=== PATIENT | female | born 1995 | race Caucasian/White ===

== ENCOUNTER 2025-05-09 13:35 | Inpatient (IN) ==
--- NOTE | 2025-05-09 14:05 | Emergency Department Note ---
Impression & Plan Suicidal ideation ED Provider Note NAME: RONNIE GILBERT AGE: 29 SEX: F : 1995 ARRIVES VIA: Walk-In INFORMANT: Patient ED PROVIDER(S): Clifford CHIEF COMPLAINT: Mental health evaluation HISTORY OF PRESENT ILLNESS: The patient is a 29-year-old female who has bipolar disease. She states that a week and a half ago, she received a steroid injection in her back and, this triggered a manic episode. Now she is on a low. She missed her medications a few days as well. The patient was having suicidal thoughts. She planned to jump off of a parking garage and now, has a plan to take her pills in excess. The patient went to her therapist today, she explained her current feelings and, the therapist sent the patient here to the ER for a mental health screen. The patient has not had cough cold or congestion. She states her only real medical issue is her lower back. She has chronic pain. Of note, the patient has not had a menstrual cycle in 3 months although, this is typical when she is stressed. PMHx/PSHx/Social Hx: See Below PHYSICAL EXAM: GENERAL: Patient is in no acute distress. HEENT: No acute trauma, normocephalic atraumatic, mucous membranes moist, no nasal congestion. NECK: No stridor, no adenopathy, no meningismus, trachea is midline. LUNGS: Clear to auscultation bilaterally, no wheeze, no rhonchi, breath sounds equal. HEART: Without murmurs gallops or rubs, regular rate and rhythm. ABDOMEN: Soft, nontender, no peritonitis. EXTREMITIES: No cyanosis, full range of motion of all the joints without pain or difficulty. NEUROLOGIC: Oriented x 3, no acute motor or sensory deficits, no focal weakness. SKIN: No jaundice, no diaphoresis. Psychiatric: Tearful, admits to suicidal ideation with a plan. Voluntary. DIFFERENTIAL DIAGNOSIS: Psychosis, medication noncompliance, bipolar flare, suicidality, among others. EMERGENCY DEPARTMENT PROCEDURES: MEDICAL DECISION MAKING: There is a mild leukocytosis, looking back at previous testing, this appears a more of a chronic issue. There is a normal hemoglobin. Platelet count slightly high at 413. No bandemia. No electrolyte abnormality or significant elevation to the liver enzymes. No renal failure. testing was negative. Patient appeared to be in euthyroid state. Aspirin and Tylenol levels were undetectable. Alcohol level was undetectable. Urine tox was positive for marijuana. Urinalysis did not show findings of infection. COVID test was negative. On exam, the patient was cooperative. She was voluntary. The patient was felt medically clear. The patient was seen by psychiatry case management. The patient was seen by our psychiatric services, 3 S. She has been accepted to their floor as a voluntary psychiatric admission. He appropriate paperwork was completed and signed. Prior/Outside records/notes reviewed: None Imaging/x-ray results per my interpretation: Chronic Medical/Social conditions affecting care: History of bipolar disease Care/Management discussed with: Psychiatry case management. Level of care consideration(s): After review of the information above and other included data: --I believe the patient requires escalation of care to admission DISPOSITION: Admission voluntarily to our psychiatric services here at [facility], 3 S. Past Med/Surg History Problem List Suicidal ideation (Acute) Migraine Paresthesia Medical History Bipolar disorder Social History Smoking Status: Former smoker Preferred Language: Guyanese Communication Ability: Effective Marketing Lead Required: No Beliefs That Will Affect Care: None Feels Safe at Home: Yes Gender Identity: Female Assistive Devices: Glasses Allergies Allergies Allergy/AdvReac Type Severity Reaction Status Date / Time grass pollen Allergy Itching Verified 06/17/24 09:58 cats Allergy Congested Uncoded 06/17/24 09:58 dogs Allergy Congested Uncoded 06/17/24 09:58 dust mite Allergy Itching Uncoded 06/17/24 09:58 Home Meds Home Medications Medication Instructions Recorded Confirmed albuterol sulfate 90 mcg/actuation 2 puff inhalation Q6H PRN SOB 06/17/24 05/09/25 aerosol inhaler fluoxetine 20 mg capsule 60 mg PO BID 05/09/25 05/09/25 lamotrigine 150 mg tablet 150 mg PO DAILY 05/09/25 05/09/25 lamotrigine 25 mg tablet 50 mg PO DAILY 05/09/25 05/09/25 norethindrone 1 mg-ethinyl 1 tab PO DAILY 05/09/25 05/09/25 estradiol 20 mcg (21)-iron 75 mg (7) tablet (Shauna Fe 08/29 (28)) omeprazole 20 mg capsule,delayed 20 mg PO BID 05/09/25 05/09/25 release Previous Rx's Medication Instructions Recorded epinephrine 0.3 mg/0.3 mL 0.3 mg (0.3 mL) IM ONCE PRN 05/27/24 injection, auto-injector (EpiPen) anaphylaxis #2 ea cetirizine 10 mg tablet 10 mg PO DAILY #30 tabs 06/17/24 Breo Ellipta 100 mcg-25 mcg/dose 1 inh inhalation DAILY #28 ea 10/14/24 powder for inhalation (fluticasone furoate-vilanterol) Results & Data (ED) Vital Signs Vital Signs - 24 hr 05/09/25 13:40 Temperature 36.4 C L Temperature Source Temporal Artery Scan Pulse Rate 98 H Respiratory Rate 17 Respiratory Effort / Characteristics Non-Labored Spontaneous Respiratory Depth Normal Respiratory Pattern Regular Blood Pressure 139/89 Blood Pressure Mean 105 Pulse Oximetry 96 Oxygen Delivery Method Room Air Sepsis Recent Fever Within 48 Hours No Sepsis New/Unexplained Change in Mental Status N/A Sepsis Action Taken by Nursing No Action Required Home Medications Current Medication List: was personally reviewed by me Laboratory Data Attestation: I reviewed the patient's lab results. 05/09/25 14:18 05/09/25 14:18 Lab Results 05/09/25 Range/Units 14:18 WBC 13.68 H (4.8-10.8) K/ul RBC 4.74 (4.20-5.40) M/uL Hgb 12.9 (12.0-16.0) g/dl Hct 39.3 (37.0-47.0) % MCV 82.9 (80.0-100.0) fL MCH 27.2 (25.0-34.0) pg MCHC 32.8 (32.0-36.0) g/dL RDW Std Deviation 40.6 (36.4-46.3) fL RDW Coeff of Neil 13.6 (11.5-14.5) % Plt Count 413 H (130-400) K/uL MPV 9.8 (9.4-12.4) fL Immature Gran % (Auto) 0.4 % Neut % (Auto) 67.3 % Lymph % (Auto) 26.2 % Mathews % (Auto) 4.2 % Eos % (Auto) 1.7 % Baso % (Auto) 0.2 % Neut # (Auto) 9.20 H (1.40-6.50) K/uL Lymph # (Auto) 3.59 H (1.20-3.40) K/uL Mathews # (Auto) 0.58 (0.11-0.59) K/uL Eos # (Auto) 0.23 (0.00-0.50) K/uL Baso # (Auto) 0.03 (0.00-0.20) K/uL Immature Gran # (Auto) 0.05 (0.01-0.20) K/uL Sodium 139 (136-145) mmol/L Potassium 4.1 (3.5-5.1) mmol/L Chloride 105 (98-107) mmol/L Carbon Dioxide 24 (21-32) mmol/L Anion Gap 10 (3-11) BUN 12 (6-23) mg/dl Creatinine 0.83 (0.6-1.2) mg/dl Est Cr Clr Drug Dosing 155.0 ml/min eGFR 98.42 BUN/Creatinine Ratio 14.5 (10-20) Glucose 126 H (70-99(Fasting)) mg/dl Calcium 9.3 (8.6-10.3) mg/dl Total Bilirubin 0.4 (0.2-1.0) mg/dl AST 14 (13-39) U/L ALT 11 (7-52) U/L Alkaline Phosphatase 133 H (34-104) U/L Total Protein 7.2 (6.0-8.3) gm/dl Albumin 3.9 (3.4-5.0) gm/dl Globulin 3.3 (2.5-4.0) gm/dl Albumin/Globulin Ratio 1.2 (0.9-2) TSH 3.067 (0.300-4.500) uIu/ml HCG, Qual Negative (Negative) Salicylates < 3.0 L (3.0-30) mg/dl Acetaminophen < 3 L (10-30) ug/ml Ethyl Alcohol mg/dL < 10.0 (<10.0) mg/dl SARS-CoV-2, RNA, NAAT NEGATIVE (NEGATIVE) Administered Medications Cetirizine HCl (Cetirizine Hcl 10 Mg Tablet) 10 mg PO 2100 CELESTE Stop: 06/08/25 20:59 Last Admin: 05/09/25 22:20 Dose: 10 mg Documented By: EL Fluoxetine HCl (Fluoxetine Hcl 20 Mg Cap) 40 mg PO HS CELESTE Stop: 06/08/25 21:59 Last Admin: 05/09/25 22:20 Dose: 40 mg Documented By: EL Lamotrigine (Lamotrigine 25 Mg Tab) 50 mg PO HS CELESTE; Protocol Stop: 06/08/25 21:59 Last Admin: 05/09/25 22:20 Dose: 50 mg Documented By: EL Discontinued Medications Acetaminophen (Acetaminophen 500 Mg Tab) 1,000 mg PO NOW STA Stop: 05/09/25 15:57 Last Admin: 05/09/25 16:25 Dose: 1,000 mg Documented By: YANNA Hydroxyzine HCl (Hydroxyzine Hcl 25 Mg Tab) 25 mg PO NOW STA Stop: 05/09/25 14:13 Last Admin: 05/09/25 14:29 Dose: 25 mg Documented By: GARY Lorazepam (Lorazepam 1 Mg Tab) 1 mg SL NOW STA Stop: 05/09/25 14:13 Last Admin: 05/09/25 14:29 Dose: 1 mg Documented By: GARY Discharge Plan Visit Data Chief Complaint: Mental Health Evaluation Stated Complaint: SUICIDAL IDEATION ED Provider: Ozzy Horton Discharge Problem: Suicidal ideation Patient Disposition: Admitted As Inpatient Condition: Good Discharge Instructions Interventions: ED Discharge Assessment Last Done: 05/09/25 17:34
[2025-05-09] MEDS: LORazepam 1 MG TAB SL STA (14:29)
[2025-05-09 14:49] LABS: Hematocrit (blood only) 39.3 % (37.0-47.0); Hemoglobin 12.9 g/dl (12.0-16.0); Immature Granulocytes # (auto) 0.05 K/uL (0.01-0.20); Immature Granulocytes % (auto) 0.4 %; Mean Corpuscular Hemoglobin 27.2 pg (25.0-34.0); Mean Corpuscular Volume 82.9 fL (80.0-100.0); Platelet Count 413 K/uL (130-400); RDW Standard Deviation 40.6 fL (36.4-46.3); Red Blood Count 4.74 M/uL (4.20-5.40); White Blood Count 13.68 K/ul (4.8-10.8)
[2025-05-09 15:09] LABS: Alanine Aminotransferase 11.0 U/L (7-52); Albumin Globulin Ratio 1.2 (0.9-2); Albumin Level 3.9 gm/dl (3.4-5.0); Alkaline Phosphatase 133.0 U/L (34-104); Anion Gap 10.0 (3-11); Bilirubin,Total 0.4 mg/dl (0.2-1.0); Blood Urea Nitrogen 12.0 mg/dl (6-23); Calcium 9.3 mg/dl (8.6-10.3); Carbon Dioxide 24.0 mmol/L (21-32); Chloride 105.0 mmol/L (98-107); Creatinine Clr Calc Pharmacy 155.0 ml/min; Globulin 3.3 gm/dl (2.5-4.0); Glucose 126.0 mg/dl (70-99(Fasting)); Potassium 4.1 mmol/L (3.5-5.1); Sodium 139.0 mmol/L (136-145); Total Protein 7.2 gm/dl (6.0-8.3)
[2025-05-09 15:17] LABS: Acetaminophen < 3 ug/ml (10-30); Salicylate < 3.0 mg/dl (3.0-30)
[2025-05-09 15:20] LABS: Pregnancy Test, Serum Negative (Negative)
[2025-05-09 15:21] LABS: Thyroid Stimulating Hormone 3.067 uIu/ml (0.300-4.500)
[2025-05-09 15:43] LABS: Appearance Urine Clear (Clear); Bacteria Urine Automated 3+ (None Seen); Cast Urine Automated 0-2 /lpf (0-2); Glucose Urine UA Negative (Negative); WBC Urine Automated 0-5 /hpf (0-5)
[2025-05-09 16:03] LABS: Amphetamines+Metham, Urine Neg (Neg); MDMA (Ecstacy), Urine Neg (Neg); Marijuana, Urine Pos (Neg)
[2025-05-09] MEDS: ACETAMINOPHEN 500 MG TAB PO STA (16:25)
[2025-05-09] MEDS ORDERED: SODIUM CHLORIDE 0.65% NA SOLN 45 ML (OCEAN) PRN (18:29)
[2025-05-09] MEDS ORDERED: ALUMINUM/MAGNESIUM SUSP 30 ML UDC PO PRN (18:29)
[2025-05-09] MEDS ORDERED: BISMUTH SUBSALICYLATE 262 MG CHEW PO PRN (18:29)
[2025-05-09] MEDS ORDERED: MAGNESIUM HYDROXIDE SUSP 30 ML UDC PO PRN (18:29)
[2025-05-09] MEDS: lamoTRIgine 25 MG TAB PO SCH (22:20)
[2025-05-09] MEDS: CETIRIZINE HCL 10 MG TABLET PO SCH (22:20)
--- NOTE | 2025-05-10 09:20 | History & Physical ---
Date of Service May 10, 2025 Impression / Recommendations Impression RONNIE GILBERT is a 29-year-old woman (prefers she/they pronouns) who currently lives in [place] with her boyfriend, has a history of bipolar disorder vs borderline personality disorder and PTSD, and was admitted on 05/09/25 17:34 on a 201 voluntary commitment for worsening depression and SI and feeling unable to remain safe. Diagnostically consistent with bipolar affective disorder current depressive episode as well as generalized anxiety disorder and chronic back pain. Discussed medication treatment options in detail. Discussed risks, benefits and alternatives. Patient would like to start and consented to [place] for mood stabilization while lamictal is slowly re-titrated, continuation of lamictal, increase of fluoxetine, initiation of clonidine for off-label use for anxiety and lidocaine patch for back pain. Reviewed side effects including but not limited to: GI, [place], with fluoxetine; low BP/sycnope with clonidine; SJS/potential for fatal rash/importance of adherence with lamictal (and reviewed that increasing at a slightly faster pace than typically recommended but she is comfortable with being at 50mg instead of 25mg); and TSH, Cr, electrolytes, LFTs, CBC with platelets were reviewed, educated on risks of dehydration, renal, thyroid, cardiac, drug interactions (NSAIDs, ACEIs, angiotensin receptor antagonists, risks). Overall I spent a total of 75 minutes for this admission including review of chart records, review of labwork, direct evaluation of the patient, counseling the patient, ordering medication, risk assessment, discussion with the psychiatric liason RN and documentation in the electronic health record. (1) Depression with suicidal ideation: (2) Bipolar I disorder with depression, severe: (3) Generalized anxiety disorder with panic attacks: (4) Back pain: Plan 05/10/2025: The patient was admitted to the [facility] ([facility]) on q15 min checks (behavioral with suicide precautions) for safety. The patient will participate in group, recreational, and milieu therapies and will be offered additional individual and family sessions as clinically appropriate. -Start [place] SR 300mg HS -Start clonidine 0.1mg HS -Start lidocaine patch for back pain -Increase fluoxetine to 60mg HS -melatonin 1.5mg HS -Continue lamictal 50mg HS -Provided with symptom questionnaires: Soledad, MDQ, PHQ-9, JYOTSNA-7, Y-BOCS Inventory Assets Strengths: supportive relationships, willing to get treatment Needs: safety and stabilization, medication adjustment, additional coping skills, increased outpatient services Suicide Risk Level Suicide Risk Level: High-Moderate (q15 min suicide checks) (bipolar depression with SI but feels safe in the hospital and feels able to ask for support) Risk Factors Assessment Male: No : Yes Do You Have Access To A Gun?: No Health Problems: Yes Mental Health Diagnoses: Yes Substance Use Disorders: No Previous Attempt: No Family History of Suicide: No Previous Psychiatric Hospitalization: No Hopelessness: Yes Protective Factors Assessment Employed: Yes Stable Relationships: Yes Supportive Family: Yes (mother) Good Rapport with Provider: Yes Psychiatric History Identifying Data RONNIE GILBERT is a 29-year-old woman (prefers she/they pronouns) who currently lives in [place] with her boyfriend, has a history of bipolar disorder vs borderline personality disorder and PTSD, and was admitted on 05/09/25 17:34 on a 201 voluntary commitment for worsening depression and SI and feeling unable to remain safe. Chief Complaint "I've been really depressed". History of Present Illness Ronnie presents for psychiatric admission due to worsening depression and suicidal ideation that began approximately a week and a half ago in the context of a recent manic episode following steroid injection and financial concerns. 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 Additionally she has been inconsistent with her psychiatric medications due to her depression reporting she was so depressed she could not go to the pharmacy to pick them up and "was not asking for help". She missed her Lamictal dose for 3 days after running out which led her outpatient nurse practitioner to recommend reducing the dose from 150 mg to 50 mg. She is supposed to increase her Prozac from 40 mg to 60 mg but never picked up the new prescription. She reports that her current depressive episode began a week and a half ago describing profound fatigue and hypersomnia. She has been unable to complete schoolwork which has increased her guilt. She has been isolating socially despite being "very extroverted" and normally enjoying "being around people and talking to people" but now states "I do not want to see anyone". She reports symptoms of fatigue, difficulty attending to daily tasks, hasn't been able to concentrate or get any school work done, self-guilt, tearful, hopelessness, some anhedonia, isolating, decreased appetite, and increased sleep. She describes experiencing suicidal ideation that began a week and a half ago with thoughts that are persistent and intrusive. She has been thinking "I could take all my pills right now and it just keeps popping into my head". She also describes a specific incident last week where she thought she would jump off the parking garage and walked towards the ledge which she notes was "pretty extreme for me" but was diet deterred by concerns about social consequences if she survived after she saw cameras on the parking deck. She has been also been having thoughts of self-harm through cutting which she has not engaged in for approximately 5 years. Prior to this depressive episode earlier Ronnie experienced what appears to be a manic episode following a steroid injection she reports sleeping only "5 hours of sleep over 3 to 5 days" during which she was "in a great mood" and "so productive". During this period she describes being "so energetic like I could not stop talking" and would try to wake her partner at 4 AM to do things. She engaged in excessive spending which she identifies as a pattern when she feels elevated. The manic episode ended around April 30 when she noted her mood "started to crash" leading into the current depressive episode. At times she feels the need to repeat things which she describes as "commercial ads and sounds bites and stuff on repeat" noting that if she tries to stop "I feel like it is trying to like crawl out of me I have to say it". She also endorses symptoms of anxiety including generalized worries, stomach issues, easily overwhelmed and panic attacks (few times per year). Identifies target symptoms of: self-hate and racing negative thoughts and "feeling like I can't do anything". She is currently prescribed psychiatric medications of: fluoxetine (40mg HS was supposed to increase to 60mg but hasn't picked up higher dose), lamictal (had been on 150mg after chance but then with depression she didn't apple picker her script and missed 3 days), melatonin 1mg gummy nightly. Xanax prn but only takes for flights (just a few times per year). History of possible episodes of chance most recently two weeks ago after getting a steroid injection. Then went about 5 days on only 5 hours of sleep over that time with elevated mood, very productive, spent a lot of money, she didn't have any other reckless behaviors nor grandiosity nor hyper-pentecostal, people were noticing she couldn't stop talking. Psychiatric ROS notable for no current nor history of symptoms of psychosis. History of purging 5-6 years ago, 2 weeks ago induced purging three times but she felt nausea from increased anxiety. History of self-harm via cutting, last about 5 years ago. Possible some OCD symptoms of having recurrent thoughts and needing to vocalize this but she doesn't feel this is taking up excessive amounts of time. Past Psychiatric History Current Psychiatric Diagnosis: Bipolar Disorder, PTSD Outpatient Services: -Deborah Crane NP for psych medications at [facility] -therapy with Valery Peng at [facility] weekly Previous Psych Admissions: none Do You Have Access To A Gun?: No History of Previous Suicide Attempt: No Past Medication Trials: Geomichela (rod) Buspar Wellbutrin Lexapro Vraylar Allergies Allergy/AdvReac Type Severity Reaction Status Date / Time grass pollen Allergy Itching Verified 06/17/24 09:58 cats Allergy Congested Uncoded 06/17/24 09:58 dogs Allergy Congested Uncoded 06/17/24 09:58 dust mite Allergy Itching Uncoded 06/17/24 09:58 Home Medications Medication Instructions Recorded Confirmed Type epinephrine 0.3 mg/0.3 mL 0.3 mg (0.3 mL) IM ONCE PRN 05/27/24 05/09/25 Rx injection, auto-injector (EpiPen) anaphylaxis #2 ea albuterol sulfate 90 mcg/actuation 2 puff inhalation Q6H PRN SOB 06/17/24 05/09/25 History aerosol inhaler cetirizine 10 mg tablet 10 mg PO DAILY #30 tabs 06/17/24 05/09/25 Rx Breo Ellipta 100 mcg-25 mcg/dose 1 inh inhalation DAILY #28 ea 10/14/24 05/09/25 Rx powder for inhalation (fluticasone furoate-vilanterol) fluoxetine 20 mg capsule 60 mg PO BID 05/09/25 05/09/25 History lamotrigine 150 mg tablet 150 mg PO DAILY 05/09/25 05/09/25 History lamotrigine 25 mg tablet 50 mg PO DAILY 05/09/25 05/09/25 History norethindrone 1 mg-ethinyl 1 tab PO DAILY 05/09/25 05/09/25 History estradiol 20 mcg (21)-iron 75 mg (7) tablet (Shauna Fe 08/29 (28)) omeprazole 20 mg capsule,delayed 20 mg PO BID 05/09/25 05/09/25 History release Family History Family History of: Alcoholism/Drug Abuse (mother and father) and Bipolar (mother) Alcohol History Hx of Alcohol Use Over the Past 12 Months: Yes AUDIT Total Score: 2 Social use, problematic around age 22 with excessive use but no longer struggles with use Smoking Use Have You Smoked or Used Tobacco Products in the Last 30 Days: No tobacco type: cigarettes Smoking Status: Former smoker Substance History Hx of Prescription Med Misuse Over the Past 12 Months: No Hx of Over the Counter Med Misuse Over the Past 12 Months: No Hx of Inhalent Misuse Over the Past 12 Months: No Hx of Organic Substance Use Over the Past 12 Months: Yes (THC Gummies) Hx of Illegal Substances/Street Drug Use Over Past 12 Months: No Problems as a Result of Past Substance Use: None Identified THC gummies daily, likes that they help with quieting thoughts and calm her down and improves her mood Personal History Living Arrangements: Apartment Living Arrangements Comments: Live with my partner and 4 cats Highest Grade Completed: 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 Other (together for 5 years) Number Of Children: 0 Beliefs That Will Affect Care: None Current Legal Problems: No Hx Legal Problems: No Hx Traumatic Life Events: Yes Patient History Medical History Bipolar disorder Social History Smoking Status: Former smoker Preferred Language: Czech Communication Ability: Effective Loom Blower Required: No Beliefs That Will Affect Care: None Feels Safe at Home: Yes Gender Identity: Female Assistive Devices: Glasses Review of Systems Review of Systems: All systems reviewed & are unremarkable except as noted in HPI & below (back pain) Physical Exam Psychiatric: Orientation: alert and oriented x 3 Apperance: appropriately dressed and appropriately groomed Eye Contact: + fair eye contact Motor Behavior: no abnormal motor movements Speech: normal rate/rhythm/volume of speech Affect: + depressed affect and + anxious affect Mood: + depressed mood and + anxious mood Thought Process: + circumstantial thought process Thought Content: reality based without delusions Suicidal Thoughts: denies suicidal plan and denies suicidal intent; + reports suicidal thoughts Homicidal Thoughts: denies homicidal thoughts Hallucinations: no auditory hallucinations and no visual hallucinations Cognition: recent memory grossly intact, remote memory grossly intact, attention grossly intact and language grossly intact Estimated Intelligence: consistent with education level Insight: + fair insight Judgment: + fair judgement Vital Signs (Past 24 Hours): Last Vital Signs Temp 36.6 C 05/10/25 06:32 Pulse 74 05/10/25 06:33 Resp 16 05/10/25 06:32 BP 133/85 05/10/25 06:33 Pulse Ox 96 05/09/25 18:37 O2 Del Method Room Air 05/09/25 18:37 Exam Statement: A physical exam was performed in the ED by Dr. Horton for the purposes of medical clearance. I accept that physical as correct and adequate for the purposes of the inpatient physical exam. Results & Data ([facility]) Laboratory Results Laboratory Results - last 24 hr 05/09/25 05/09/25 14:18 Unknown WBC 13.68 H RBC 4.74 Hgb 12.9 Hct 39.3 MCV 82.9 MCH 27.2 MCHC 32.8 RDW Std Deviation 40.6 RDW Coeff of Neil 13.6 Plt Count 413 H MPV 9.8 Immature Gran % (Auto) 0.4 Neut % (Auto) 67.3 Lymph % (Auto) 26.2 [place] % (Auto) 4.2 Eos % (Auto) 1.7 Baso % (Auto) 0.2 Neut # (Auto) 9.20 H Lymph # (Auto) 3.59 H [place] # (Auto) 0.58 Eos # (Auto) 0.23 Baso # (Auto) 0.03 Immature Gran # (Auto) 0.05 Sodium 139 Potassium 4.1 Chloride 105 Carbon Dioxide 24 Anion Gap 10 BUN 12 Creatinine 0.83 Est Cr Clr Drug Dosing 155.0 eGFR 98.42 BUN/Creatinine Ratio 14.5 Glucose 126 H Calcium 9.3 Total Bilirubin 0.4 AST 14 ALT 11 Alkaline Phosphatase 133 H Total Protein 7.2 Albumin 3.9 Globulin 3.3 Albumin/Globulin Ratio 1.2 TSH 3.067 HCG, Qual Negative Urine Color Yellow Urine Appearance Clear Urine pH 6.5 Ur Specific [place] 1.013 Urine Protein Negative Urine Glucose (UA) Negative Urine Ketones Negative Urine Blood 1+ H Urine Nitrite Negative Urine Bilirubin Negative Urine Urobilinogen Negative Ur Leukocyte Esterase Negative Urine WBC (Auto) 0-5 Urine RBC (Auto) 3-5 H U Hyaline Cast (Auto) 0-2 U Epithel Cells (Auto) 3-5 H Urine Bacteria (Auto) 3+ H Urine Comment Salicylates < 3.0 L Urine Opiates Screen Neg Ur Methadone, Qual Neg Urine Fentanyl Screen Neg Acetaminophen < 3 L Urine Barbiturates Neg Ur Phencyclidine (PCP) Neg U Amphetamin/Meth Scrn Neg MDMA (Ecstasy) Screen Neg U Benzodiazepines Scrn Neg Ur Cocaine Metabolite Neg U Marijuana (THC) Screen Pos H U Marijuana THC Carboxy Pending Drug Screen Comment Pending Ethyl Alcohol mg/dL < 10.0 SARS-CoV-2, RNA, NAAT NEGATIVE Current Inpatient Medications Current Inpatient Medications: Current Inpatient Medications Acetaminophen (Acetaminophen 325 Mg Tab) 650 mg PO Q4H PRN PRN Reason: Headache or Minor Fever Stop: 06/08/25 18:28 Al Hydrox/Mg Hydrox/Simethicone (Aluminum/Magnesium Susp 30 Ml Udc) 30 ml PO Q4H PRN PRN Reason: GI Upset Stop: 06/08/25 18:28 Bismuth Subsalicylate (Bismuth Subsalicylate 262 Mg Chew) 2 tab PO Q30M PRN PRN Reason: Loose Stool/Diarrhea Stop: 06/08/25 18:28 Cetirizine HCl (Cetirizine Hcl 10 Mg Tablet) 10 mg PO 2100 CELESTE Stop: 06/08/25 20:59 Last Admin: 05/09/25 22:20 Dose: 10 mg Fluoxetine HCl (Fluoxetine Hcl 20 Mg Cap) 40 mg PO HS CELESTE Stop: 06/08/25 21:59 Last Admin: 05/09/25 22:20 Dose: 40 mg Hydroxyzine HCl (Hydroxyzine Hcl 25 Mg Tab) 50 mg PO HSZ PRN PRN Reason: Insomnia Stop: 06/08/25 18:28 Hydroxyzine HCl (Hydroxyzine Hcl 25 Mg Tab) 25 mg PO Q4H PRN PRN Reason: Anxiety Stop: 06/08/25 18:28 Lamotrigine (Lamotrigine 25 Mg Tab) 50 mg PO HS CELESTE; Protocol Stop: 06/08/25 21:59 Last Admin: 05/09/25 22:20 Dose: 50 mg Magnesium Hydroxide (Magnesium Hydroxide Susp 30 Ml Udc) 30 ml PO DAILY PRN PRN Reason: Constipation Stop: 06/08/25 18:28 Sodium Chloride (Sodium Chloride 0.65% Na Soln 45 Ml ([place])) 1 - 2 sprays NA PRN PRN PRN Reason: Nasal Dryness/Congestion Stop: 06/08/25 18:28
[2025-05-10] MEDS ORDERED: ALBUTEROL HFA 8 GM INHALER INH PRN (10:36)
[2025-05-10] MEDS: LIDOCAINE 5% 1 PATCH TD SCH (12:23)
[2025-05-10] MEDS: INFLUENZA VACC TS2025-26(6m+)/PF (IIV3) 0.5mL Syr IM ONE (13:23)
[2025-05-10] MEDS: LITHIUM CARBONATE SLOW REL 300 MG TAB PO SCH (20:57)
[2025-05-10] MEDS: CETIRIZINE HCL 10 MG TABLET PO SCH (20:58)
[2025-05-10] MEDS: lamoTRIgine 25 MG TAB PO SCH (20:58)
[2025-05-10] MEDS: [UNRECOGNIZED DRUG - OTHER] PO SCH (20:59)
[2025-05-10] MEDS: MELATONIN 1 MG PO SCH (20:59)
[2025-05-10] MEDS: REMOVE LIDODERM PATCH SCH (21:00)
[2025-05-10] MEDS ORDERED: MELATONIN 3 MG TAB PO SCH (22:00)
[2025-05-10] MEDS: ACETAMINOPHEN 325 MG TAB PO PRN (22:01)
[2025-05-11] MEDS: ETHINYL ESTRADIOL PO SCH (08:14)
[2025-05-11] MEDS: FERROUS FUMARATE PO SCH (08:14)
[2025-05-11] MEDS: NORETHINDRONE PO SCH (08:14)
--- NOTE | 2025-05-11 09:15 | Psychiatric Progress Note ---
Date of Service May 11, 2025 Impression / Recommendations Impression RONNIE GILBERT is a 29-year-old woman (prefers she/they pronouns) who currently lives in [place] with her boyfriend, has a history of bipolar disorder vs borderline personality disorder and PTSD, and was admitted on 05/09/25 17:34 on a 201 voluntary commitment for worsening depression and SI and feeling unable to remain safe. Diagnostically consistent with bipolar affective disorder current depressive episode as well as generalized anxiety disorder and chronic back pain. A: Ongoing depression but showing some improvement with lessening of anxiety. [place] a little tired this morning but also had some disruption of her sleep. Tolerating medication changes without side effects, low BP this morning but asymptomatic. She consents to increasing [place]. Overall, I spent a total of 38 minutes on this case including meeting with the patient, reviewing the chart, nursing report, multidisciplinary team meeting, orders, and documentation. (1) Depression with suicidal ideation: (2) Bipolar I disorder with depression, severe: (3) Generalized anxiety disorder with panic attacks: (4) Back pain: Plan 05/11/2025: -Increase [place] SR to 600mg HS 05/10/2025: The patient was admitted to the [facility] ([facility] mental [facility]) on q15 min checks (behavioral with suicide precautions) for safety. The patient will participate in group, recreational, and milieu therapies and will be offered additional individual and family sessions as clinically appropriate. -Start [place] SR 300mg HS -Start clonidine 0.1mg HS -Start lidocaine patch for back pain -Increase fluoxetine to 60mg HS -melatonin 1.5mg HS -Continue lamictal 50mg HS -Provided with symptom questionnaires: Soledad MDChelita, PHQ-9, JYOTSNA-7, Y-BOCS Inventory Assets Strengths: supportive relationships, willing to get treatment Needs: safety and stabilization, medication adjustment, additional coping skills, increased outpatient services Suicide Risk Level Suicide Risk Level: Moderate (q15 min suicide checks) (bipolar depression with SI prior to admission but mood improving and denies SI today and feels safe in the hospital and feels able to ask for support) Suicide Risk Level Comments: Risk Factors Assessment Male: No : Yes Do You Have Access To A Gun?: No Health Problems: Yes Mental Health Diagnoses: Yes Substance Use Disorders: No Previous Attempt: No Family History of Suicide: No Previous Psychiatric Hospitalization: No Hopelessness: Yes Protective Factors Assessment Employed: Yes Stable Relationships: Yes Supportive Family: Yes (mother) Good Rapport with Provider: Yes Interval History Identifying Information RONNIE GILBERT is a 29-year-old woman (prefers she/they pronouns) who currently lives in [place] with her boyfriend, has a history of bipolar disorder vs borderline personality disorder and PTSD, and was admitted on 05/09/25 17:34 on a 201 voluntary commitment for worsening depression and SI and feeling unable to remain safe. Chief Complaint "A little sleepy". Review of Systems Sleep Information Total Hours of Sleep: 6 Meal Information Percent Meal Consumed - Breakfast: 20 Percent Meal Consumed - Lunch: 100 Percent Meal Consumed - Dinner: 100 Nutrition Comment: pt. declines but has a snack and coffee Subjective Subjective Patient was seen & assessed and interval progress reviewed with nursing and social work. Attending groups. 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 Rated her mood as 6/10. Today reports some fatigue due to disruptive peer overnight. 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 She reflects on how overwhelmed and burnt out and stressed she's been feeling from this and how she feels glad to have made a decision about what to do moving forward. Denies any medication side effects so far. She'd like to increase the [place] dose and we discuss then staying at 600mg until she gets a level. She's interested in considering an outpatient IOP. Has less anxiety today, she's not sure if that's a benefit of the medication changes versus from making the decision to take a pause from school. Physical Exam Psychiatric Orientation: alert and oriented x 3 Apperance: appropriately dressed and appropriately groomed Eye Contact: + fair eye contact Motor Behavior: no abnormal motor movements Speech: normal rate/rhythm/volume of speech Affect: + depressed affect Mood: + depressed mood Thought Process: + circumstantial thought process Thought Content: reality based without delusions Suicidal Thoughts: denies suicidal plan and denies suicidal intent; + reports suicidal thoughts (lessened today) Homicidal Thoughts: denies homicidal thoughts Hallucinations: no auditory hallucinations and no visual hallucinations Cognition: recent memory grossly intact, remote memory grossly intact, attention grossly intact and language grossly intact Estimated Intelligence: consistent with education level Insight: + fair insight Judgment: + fair judgement Vital Signs (Past 24 Hours) Last Vital Signs Temp 36.6 C 05/11/25 06:37 Pulse 98 H 05/11/25 06:37 Resp 18 05/11/25 06:37 BP 108/57 L 05/11/25 06:37 Pulse Ox 98 05/11/25 06:37 O2 Del Method Room Air 05/11/25 06:37 Results & Data ([facility]) Current Inpatient Medications Current Inpatient Medications: Current Inpatient Medications Acetaminophen (Acetaminophen 325 Mg Tab) 650 mg PO Q4H PRN PRN Reason: Headache or Minor Fever Stop: 06/08/25 18:28 Last Admin: 05/10/25 22:01 Dose: 650 mg Al Hydrox/Mg Hydrox/Simethicone (Aluminum/Magnesium Susp 30 Ml Udc) 30 ml PO Q4H PRN PRN Reason: GI Upset Stop: 06/08/25 18:28 Albuterol (Albuterol Hfa 8 Gm Inhaler) 2 puffs INH Q6H PRN PRN Reason: Shortness Of Breath Stop: 06/09/25 10:35 Bismuth Subsalicylate (Bismuth Subsalicylate 262 Mg Chew) 2 tab PO Q30M PRN PRN Reason: Loose Stool/Diarrhea Stop: 06/08/25 18:28 Cetirizine HCl (Cetirizine Hcl 10 Mg Tablet) 10 mg PO HS CEELSTE Stop: 06/09/25 21:59 Last Admin: 05/10/25 20:58 Dose: 10 mg Clonidine HCl (Clonidine Hcl 0.1 Mg Tab) 0.1 mg PO HS CELESTE Stop: 06/09/25 21:59 Last Admin: 05/10/25 20:58 Dose: 0.1 mg Fluoxetine HCl (Fluoxetine Hcl 20 Mg Cap) 60 mg PO HS CELESTE Stop: 06/09/25 21:59 Last Admin: 05/10/25 20:57 Dose: 60 mg Hydroxyzine HCl (Hydroxyzine Hcl 25 Mg Tab) 50 mg PO HSZ PRN PRN Reason: Insomnia Stop: 06/08/25 18:28 Hydroxyzine HCl (Hydroxyzine Hcl 25 Mg Tab) 25 mg PO Q4H PRN PRN Reason: Anxiety Stop: 06/08/25 18:28 Lamotrigine (Lamotrigine 25 Mg Tab) 50 mg PO HS CELESTE Stop: 06/09/25 21:59 Last Admin: 05/10/25 20:58 Dose: 50 mg Lidocaine (Lidocaine 5% 1 Patch) 1 patch TD DAILY@1130 CELESTE Stop: 06/09/25 11:29 Last Admin: 05/10/25 12:23 Dose: 1 patch [place] Carbonate ([place] Carbonate Slow Rel 300 Mg Tab) 300 mg PO HS CELESTE Stop: 06/09/25 21:59 Last Admin: 05/10/25 20:57 Dose: 300 mg Magnesium Hydroxide (Magnesium Hydroxide Susp 30 Ml Udc) 30 ml PO DAILY PRN PRN Reason: Constipation Stop: 06/08/25 18:28 Miscellaneous (Remove Lidoderm Patch) 1 each N/A DAILY@2329 [facility] Stop: 06/09/25 23:28 Last Admin: 05/10/25 21:00 Dose: 1 each Miscellaneous (Shauna Fe 08/29 Patient's Own Oral Contraceptive) 1 each PO DAILY CELESTE Stop: 06/10/25 08:59 Last Admin: 05/11/25 08:14 Dose: 1 each Melatonin 1 Mg Gummy (- Patient's Own Med) 1.5 each PO HS CELESTE Stop: 06/09/25 21:59 Last Admin: 05/10/25 20:59 Dose: 1 mg Pantoprazole Sodium (Pantoprazole 40 Mg Tab) 40 mg PO DAILY CELESTE Stop: 06/10/25 08:59 Last Admin: 05/11/25 08:13 Dose: 40 mg Sodium Chloride (Sodium Chloride 0.65% Na Soln 45 Ml ([place])) 1 - 2 sprays NA PRN PRN PRN Reason: Nasal Dryness/Congestion Stop: 06/08/25 18:28 Mental Health & Subst Abuse Tx Psychiatrist Date Of Appointment With Psychiatric Provider: 05/15/25 Therapist Name of Therapist: Valery Lacy Date of Therapist Appointment: 05/16/25 Director Microbiology Name of Director Microbiology: n/a Post Discharge Appointments Primary Care Physician Name Of Family Doctor/PCP: Alba Franklin
[2025-05-11] MEDS: LITHIUM CARBONATE SLOW REL 300 MG TAB PO SCH (21:45)
--- NOTE | 2025-05-12 09:21 | Psychiatric Progress Note ---
Date of Service May 12, 2025 Impression / Recommendations Impression RONNIE GILBERT is a 29-year-old woman (prefers she/they pronouns) who currently lives in [place] with her boyfriend, has a history of bipolar disorder vs borderline personality disorder and PTSD, and was admitted on 05/09/25 17:34 on a 201 voluntary commitment for worsening depression and SI and feeling unable to remain safe. Diagnostically consistent with bipolar affective disorder current depressive episode as well as generalized anxiety disorder and chronic back pain. A: Mood improving, tolerating medication changes. Monitor for worsening of tinnitus or BP changes. Overall, I spent a total of 35 minutes on this case including meeting with the patient, reviewing the chart, nursing report, multidisciplinary team meeting, orders, and documentation. (1) Depression with suicidal ideation: (2) Bipolar I disorder with depression, severe: (3) Generalized anxiety disorder with panic attacks: (4) Back pain: Plan 05/12/2025: -Continue current medications and tx plan 05/11/2025: -Increase [place] SR to 600mg HS 05/10/2025: The patient was admitted to the [facility] ([facility] mental health unit) on q15 min checks (behavioral with suicide precautions) for safety. The patient will participate in group, recreational, and milieu therapies and will be offered additional individual and family sessions as clinically appropriate. -Start [place] SR 300mg HS -Start clonidine 0.1mg HS -Start lidocaine patch for back pain -Increase fluoxetine to 60mg HS -melatonin 1.5mg HS -Continue lamictal 50mg HS -Provided with symptom questionnaires: Soledad, MDQ, PHQ-9, JYOTSNA-7, Y-BOCS Inventory Assets Strengths: supportive relationships, willing to get treatment Needs: safety and stabilization, medication adjustment, additional coping skills, increased outpatient services Suicide Risk Level Suicide Risk Level: Moderate (q15 min suicide checks) (bipolar depression with SI prior to admission but mood improving and denies SI and feels safe in the hospital and feels able to ask for support) Suicide Risk Level Comments: Risk Factors Assessment Male: No : Yes Do You Have Access To A Gun?: No Health Problems: Yes Mental Health Diagnoses: Yes Substance Use Disorders: No Previous Attempt: No Family History of Suicide: No Previous Psychiatric Hospitalization: No Hopelessness: Yes Protective Factors Assessment Employed: Yes Stable Relationships: Yes Supportive Family: Yes (mother) Good Rapport with Provider: Yes Interval History Identifying Information RONNIE GILBERT is a 29-year-old woman (prefers she/they pronouns) who currently lives in [place] with her boyfriend, has a history of bipolar disorder vs borderline personality disorder and PTSD, and was admitted on 05/09/25 17:34 on a 201 voluntary commitment for worsening depression and SI and feeling unable to remain safe. Chief Complaint "Good". Review of Systems Sleep Information Total Hours of Sleep: 7 Meal Information Percent Meal Consumed - Breakfast: 20 Percent Meal Consumed - Lunch: 100 Percent Meal Consumed - Dinner: 75 Nutrition Comment: pt. declines but has a snack and coffee Subjective Subjective Patient was seen & assessed and interval progress reviewed with treatment team. Attending all the groups. Spent time processing with counselor. Called [facility]. Had a good visit with her boyfriend. Rated her mood as "hopeful". Today describes sleeping well overnight with no fatigue this morning. Had some brief tinnitus last night after taking the [place] and clonidine but this resolved after she fell asleep and no side effects today. Reviewed potentially from clonidine if her blood pressure dropped too low versus [place] side effect. She'd like to continue with both medications at the same dose, discussed that if lightheadedness occurs or tinnitus doesn't resolve then would recommend stopping clonidine or halving the dose. She feels calmer today and thinks the clonidine is helping reduce racing thoughts. Her depression is improving. Reviewed she has an appointment with her director of psychology scheduled for thursday morning and her provider will then arrange for [place] level next week. She set up IOP intake. Physical Exam Psychiatric Orientation: alert and oriented x 3 Apperance: appropriately dressed and appropriately groomed Eye Contact: + fair eye contact Motor Behavior: no abnormal motor movements Speech: normal rate/rhythm/volume of speech Affect: euthymic affect Mood: + depressed mood (but improving) Thought Process: goal directed thought process Thought Content: reality based without delusions Suicidal Thoughts: denies suicidal thoughts, denies suicidal plan and denies suicidal intent Homicidal Thoughts: denies homicidal thoughts Hallucinations: no auditory hallucinations and no visual hallucinations Cognition: recent memory grossly intact, remote memory grossly intact, attention grossly intact and language grossly intact Estimated Intelligence: consistent with education level Insight: + fair insight Judgment: + fair judgement Vital Signs (Past 24 Hours) Last Vital Signs Temp 36.8 C 05/12/25 06:36 Pulse 74 05/12/25 06:36 Resp 18 05/12/25 06:36 BP 114/81 05/12/25 06:36 Pulse Ox 99 05/12/25 06:36 O2 Del Method Room Air 05/12/25 06:36 Results & Data ([facility]) Current Inpatient Medications Current Inpatient Medications: Current Inpatient Medications Acetaminophen (Acetaminophen 325 Mg Tab) 650 mg PO Q4H PRN PRN Reason: Headache or Minor Fever Stop: 06/08/25 18:28 Last Admin: 05/11/25 19:38 Dose: 650 mg Al Hydrox/Mg Hydrox/Simethicone (Aluminum/Magnesium Susp 30 Ml Udc) 30 ml PO Q4H PRN PRN Reason: GI Upset Stop: 06/08/25 18:28 Albuterol (Albuterol Hfa 8 Gm Inhaler) 2 puffs INH Q6H PRN PRN Reason: Shortness Of Breath Stop: 06/09/25 10:35 Bismuth Subsalicylate (Bismuth Subsalicylate 262 Mg Chew) 2 tab PO Q30M PRN PRN Reason: Loose Stool/Diarrhea Stop: 06/08/25 18:28 Cetirizine HCl (Cetirizine Hcl 10 Mg Tablet) 10 mg PO HS CELESTE Stop: 06/09/25 21:59 Last Admin: 05/11/25 21:45 Dose: 10 mg Clonidine HCl (Clonidine Hcl 0.1 Mg Tab) 0.1 mg PO HS CELESTE Stop: 06/09/25 21:59 Last Admin: 05/11/25 21:45 Dose: 0.1 mg Fluoxetine HCl (Fluoxetine Hcl 20 Mg Cap) 60 mg PO HS CELESTE Stop: 06/09/25 21:59 Last Admin: 05/11/25 21:45 Dose: 60 mg Hydroxyzine HCl (Hydroxyzine Hcl 25 Mg Tab) 50 mg PO HSZ PRN PRN Reason: Insomnia Stop: 06/08/25 18:28 Hydroxyzine HCl (Hydroxyzine Hcl 25 Mg Tab) 25 mg PO Q4H PRN PRN Reason: Anxiety Stop: 06/08/25 18:28 Lamotrigine (Lamotrigine 25 Mg Tab) 50 mg PO HS CELESTE Stop: 06/09/25 21:59 Last Admin: 05/11/25 21:45 Dose: 50 mg Lidocaine (Lidocaine 5% 1 Patch) 1 patch TD DAILY@1130 CELESTE Stop: 06/09/25 11:29 Last Admin: 05/11/25 12:15 Dose: Not Given [place] Carbonate ([place] Carbonate Slow Rel 300 Mg Tab) 600 mg PO HS CELESTE Stop: 06/10/25 21:59 Last Admin: 05/11/25 21:45 Dose: 600 mg Magnesium Hydroxide (Magnesium Hydroxide Susp 30 Ml Udc) 30 ml PO DAILY PRN PRN Reason: Constipation Stop: 06/08/25 18:28 Miscellaneous (Remove Lidoderm Patch) 1 each N/A DAILY@2329 CELESTE Stop: 06/09/25 23:28 Last Admin: 05/11/25 21:54 Dose: Not Given Miscellaneous (Shauna Fe 08/29 Patient's Own Oral Contraceptive) 1 each PO DAILY CELESTE Stop: 06/10/25 08:59 Last Admin: 05/11/25 08:14 Dose: 1 each Melatonin 1 Mg Gummy (- Patient's Own Med) 1.5 each PO HS CELESTE Stop: 06/09/25 21:59 Last Admin: 05/11/25 21:45 Dose: 1 mg Pantoprazole Sodium (Pantoprazole 40 Mg Tab) 40 mg PO DAILY CELESTE Stop: 06/10/25 08:59 Last Admin: 05/11/25 08:13 Dose: 40 mg Sodium Chloride (Sodium Chloride 0.65% Na Soln 45 Ml ([place])) 1 - 2 sprays NA PRN PRN PRN Reason: Nasal Dryness/Congestion Stop: 06/08/25 18:28 Mental Health & Subst Abuse Tx Psychiatrist Name of Psychiatrist: Deborah Camara at [facility] Psychiatrist's Date Of Appointment With Psychiatric Provider: 05/15/25 Time of Appointment with Psychiatrist: 8:15 am Therapist Name of Therapist: Valery Lacy at [facility] Therapist's Date of Therapist Appointment: 05/16/25 Time of Therapist Appointment: 11:30 Or Scrub Tech Name of Or Scrub Tech: n/a Post Discharge Appointments Primary Care Physician Name Of Family Doctor/PCP: Alba Franklin Contact Information Discharge Discharge Address: [address] [place] [address]
[2025-05-12 15:17] LABS: Marijuana Quant, GCMS Urine 153 ng/mL (<5)
--- NOTE | 2025-05-13 10:13 | Discharge Summary ---
Date of Service May 13, 2025 History of Present Illness Gill presents for psychiatric admission due to worsening depression and suicidal ideation that began approximately a week and a half ago in the context of a recent manic episode following steroid injection and financial concerns. 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 Additionally she has been inconsistent with her psychiatric medications due to her depression reporting she was so depressed she could not go to the pharmacy to pick them up and "was not asking for help". She missed her Lamictal dose for 3 days after running out which led her outpatient nurse practitioner to recommend reducing the dose from 150 mg to 50 mg. She is supposed to increase her Prozac from 40 mg to 60 mg but never picked up the new prescription. She reports that her current depressive episode began a week and a half ago describing profound fatigue and hypersomnia. She has been unable to complete schoolwork which has increased her guilt. She has been isolating socially despite being "very extroverted" and normally enjoying "being around people and talking to people" but now states "I do not want to see anyone". She reports symptoms of fatigue, difficulty attending to daily tasks, hasn't been able to concentrate or get any school work done, self-guilt, tearful, hopelessness, some anhedonia, isolating, decreased appetite, and increased sleep. She describes experiencing suicidal ideation that began a week and a half ago with thoughts that are persistent and intrusive. She has been thinking "I could take all my pills right now and it just keeps popping into my head". She also describes a specific incident last week where she thought she would jump off the parking garage and walked towards the ledge which she notes was "pretty extreme for me" but was diet deterred by concerns about social consequences if she survived after she saw cameras on the parking deck. She has been also been having thoughts of self-harm through cutting which she has not engaged in for approximately 5 years. Prior to this depressive episode earlier Gill experienced what appears to be a manic episode following a steroid injection she reports sleeping only "5 hours of sleep over 3 to 5 days" during which she was "in a great mood" and "so productive". During this period she describes being "so energetic like I could not stop talking" and would try to wake her partner at 4 AM to do things. She engaged in excessive spending which she identifies as a pattern when she feels elevated. The manic episode ended around April 30 when she noted her mood "started to crash" leading into the current depressive episode. At times she feels the need to repeat things which she describes as "commercial ads and sounds bites and stuff on repeat" noting that if she tries to stop "I feel like it is trying to like crawl out of me I have to say it". She also endorses symptoms of anxiety including generalized worries, stomach issues, easily overwhelmed and panic attacks (few times per year). Identifies target symptoms of: self-hate and racing negative thoughts and "feeling like I can't do anything". She is currently prescribed psychiatric medications of: fluoxetine (40mg HS was supposed to increase to 60mg but hasn't picked up higher dose), lamictal (had been on 150mg after chance but then with depression she didn't meat pickler her script and missed 3 days), melatonin 1mg gummy nightly. Xanax prn but only takes for flights (just a few times per year). History of possible episodes of chance most recently two weeks ago after getting a steroid injection. Then went about 5 days on only 5 hours of sleep over that time with elevated mood, very productive, spent a lot of money, she didn't have any other reckless behaviors nor grandiosity nor hyper-presybeterian, people were noticing she couldn't stop talking. Psychiatric ROS notable for no current nor history of symptoms of psychosis. History of purging 5-6 years ago, 2 weeks ago induced purging three times but she felt nausea from increased anxiety. History of self-harm via cutting, last about 5 years ago. Possible some OCD symptoms of having recurrent thoughts and needing to vocalize this but she doesn't feel this is taking up excessive amounts of time. Physical Exam Psychiatric Orientation: alert and oriented x 3 Apperance: appropriately dressed and appropriately groomed Eye Contact: good eye contact and + fair eye contact Motor Behavior: no abnormal motor movements Speech: normal rate/rhythm/volume of speech Affect: euthymic affect, + depressed affect and + anxious affect Mood: + depressed mood (but improving) and + anxious mood Thought Process: goal directed thought process and + circumstantial thought process Thought Content: reality based without delusions Suicidal Thoughts: denies suicidal thoughts, denies suicidal plan and denies suicidal intent Homicidal Thoughts: denies homicidal thoughts Hallucinations: no auditory hallucinations and no visual hallucinations Cognition: recent memory grossly intact, remote memory grossly intact, attention grossly intact and language grossly intact Estimated Intelligence: consistent with education level Insight: + fair insight Judgment: + fair judgement Vital Signs (Past 24 Hours) Last Vital Signs Temp 36.7 C 05/13/25 06:38 Pulse 75 05/13/25 06:39 Resp 16 05/13/25 06:38 BP 103/68 05/13/25 06:39 Pulse Ox 99 05/12/25 06:36 O2 Del Method Room Air 05/12/25 06:36 Principal Diagnosis Bipolar 1 Disorder, major depressive episode Psychiatric Data See daily stay summary. In short, safety was maintained and the patient was cooperative with care. Medication changes included increasing Olsburg to 600mg daily, starting clonidine 0.1mg HS patch, increasing fluoxetine to 60mg daily and they tolerated this well. A family session was held and safety plan was completed prior to discharge. Day of Discharge Assessment Today the patient voices readiness for discharge. They note improvement in mood and deny thoughts to harm self or others. Thoughts remain organized and they are improved from admission. There is no evidence of psychosis. They agree to take mediations as prescribed and keep follow-up appointments. They are stable for discharge to outpatient level of care. Overall, I spent a total of 20 minutes with this case including review of chart records, nursing report, review of lab work, direct evaluation of the patient at bedside, counseling the patient, multidisciplinary team meeting, orders. Transition of Care Transition Of Care Record: was reviewed with the patient Advance Directives Advance Directives Information Provided: Yes Advance Directives: No Mental Health Advance Directive: No Advance Directives on File: No Living Will: No Power of Mill Laborer: No Advance Directives Reason:: Declines as Mental Health Visit. Suicide Risk Level Suicide Risk Level Comments: Risk Factors Assessment Male: No : Yes Do You Have Access To A Gun?: No Health Problems: Yes Mental Health Diagnoses: Yes Substance Use Disorders: No Previous Attempt: No Family History of Suicide: No Previous Psychiatric Hospitalization: No Hopelessness: Yes Protective Factors Assessment Employed: Yes Stable Relationships: Yes Supportive Family: Yes (mother) Good Rapport with Provider: Yes Discharge Data Lab Results 05/09/25 05/09/25 14:18 Unknown WBC 13.68 H RBC 4.74 Hgb 12.9 Hct 39.3 MCV 82.9 MCH 27.2 MCHC 32.8 RDW Std Deviation 40.6 RDW Coeff of Neil 13.6 Plt Count 413 H MPV 9.8 Immature Gran % (Auto) 0.4 Neut % (Auto) 67.3 Lymph % (Auto) 26.2 [place] % (Auto) 4.2 Eos % (Auto) 1.7 Baso % (Auto) 0.2 Neut # (Auto) 9.20 H Lymph # (Auto) 3.59 H [place] # (Auto) 0.58 Eos # (Auto) 0.23 Baso # (Auto) 0.03 Immature Gran # (Auto) 0.05 Sodium 139 Potassium 4.1 Chloride 105 Carbon Dioxide 24 Anion Gap 10 BUN 12 Creatinine 0.83 Est Cr Clr Drug Dosing 155.0 eGFR 98.42 BUN/Creatinine Ratio 14.5 Glucose 126 H Calcium 9.3 Total Bilirubin 0.4 AST 14 ALT 11 Alkaline Phosphatase 133 H Total Protein 7.2 Albumin 3.9 Globulin 3.3 Albumin/Globulin Ratio 1.2 TSH 3.067 HCG, Qual Negative Urine Color Yellow Urine Appearance Clear Urine pH 6.5 Ur Specific [place] 1.013 Urine Protein Negative Urine Glucose (UA) Negative Urine Ketones Negative Urine Blood 1+ H Urine Nitrite Negative Urine Bilirubin Negative Urine Urobilinogen Negative Ur Leukocyte Esterase Negative Urine WBC (Auto) 0-5 Urine RBC (Auto) 3-5 H U Hyaline Cast (Auto) 0-2 U Epithel Cells (Auto) 3-5 H Urine Bacteria (Auto) 3+ H Urine Comment Salicylates < 3.0 L Urine Opiates Screen Neg Ur Methadone, Qual Neg Urine Fentanyl Screen Neg Acetaminophen < 3 L Urine Barbiturates Neg Ur Phencyclidine (PCP) Neg U Amphetamin/Meth Scrn Neg MDMA (Ecstasy) Screen Neg U Benzodiazepines Scrn Neg Ur Cocaine Metabolite Neg U Marijuana (THC) Screen Pos H U Marijuana THC Carboxy 153 H Drug Screen Comment SEE NOTE Ethyl Alcohol mg/dL < 10.0 SARS-CoV-2, RNA, NAAT NEGATIVE Hospital Course (1) Bipolar I disorder with depression, severe: (2) Generalized anxiety disorder with panic attacks: (3) Back pain: Plan 05/12/2025: -Continue current medications and tx plan 05/11/2025: -Increase Olsburg SR to 600mg HS 05/10/2025: The patient was admitted to the [facility] ([facility]) on q15 min checks (behavioral with suicide precautions) for safety. The patient will participate in group, recreational, and milieu therapies and will be offered additional individual and family sessions as clinically appropriate. -Start O[place]burg SR 300mg HS -Start clonidine 0.1mg HS -Start lidocaine patch for back pain -Increase fluoxetine to 60mg HS -melatonin 1.5mg HS -Continue lamictal 50mg HS -Provided with symptom questionnaires: Soledad, MDQ, PHQ-9, JYOTSNA-7, Y-BOCS Mental Health & Subst Abuse Tx Psychiatrist Name of Psychiatrist: Deborah Camara at [facility] Psychiatrist's Date Of Appointment With Psychiatric Provider: 05/15/25 Time of Appointment with Psychiatrist: 8:15 am Therapist Name of Therapist: Valery Lacy at [facility] Therapist's Date of Therapist Appointment: 05/16/25 Time of Therapist Appointment: 11:30 Contour Grinder Name of Contour Grinder: n/a Post Discharge Appointments Primary Care Physician Name Of Family Doctor/PCP: Alba Franklin Other #1: Name of Aftercare Appointment: [facility] Phone Number of Aftercare Appointment: [phone] Date of Aftercare Appointment: 05/15/25 Time of Aftercare Appointment: 10AM Aftercare Appointment Comment: Link will be sent to your email Release of Information Aftercare Appointment: Obtained, Reviewed and Signed #2: Name of Aftercare Appointment: Student care and advocacy ([facility] post hospitalization zoom meeting) Phone Number of Aftercare Appointment: [phone] Date of Aftercare Appointment: 05/17/25 Time of Aftercare Appointment: 2PM Aftercare Appointment Comment: Zoom link will be sent to your [facility] email Release of Information Aftercare Appointment: Obtained, Reviewed and Signed Contact Information Discharge Discharge Address: [address] [place] [id number] Discharge Plan Discharge Items Patient Disposition: Home - Self-Care Reason For Visit: SUICIDAL IDEATION Discharge Diagnosis: Bipolar I disorder with depression, severe: Generalized anxiety disorder with panic attacks: Condition on Discharge: Good Activity: Resume your previous activity Non-emergency contact: Primary Care Provider and Psychiatrist Call non-emergency contact if: you have any medication questions and your symptoms worsen Follow-up/Referrals: Alba Franklin PA-C [Primary Care Provider] - Diet: Regular Addtl Attending Provider Instructions: Continue [place] 600mg at bedtime Continue Clonidine 0.1mg at bedtime Continue Fluoxetine 60mg at bedtime Continue Lamotrigine 50mg at bedtime Follow-up with outpatient psychiatric provider for lithium level Pending Studies at Discharge: No Stand-Alone Forms: My ideasoft, Smoking Cessation Medications and DC Order Prescriptions: New clonidine HCl 0.1 mg Tablet 0.1 mg PO HS 30 Days Qty: 30 0RF lithium carbonate 300 mg Tablet Extended Release 600 mg PO HS 30 Days Qty: 60 0RF lamotrigine [Lamictal] 25 mg Tablet 50 mg PO HS 30 Days Qty: 60 0RF fluoxetine 60 mg tablet 60 mg PO HS 30 Days Qty: 30 0RF Continued fluticasone furoate-vilanterol [Breo Ellipta] 100-25 mcg/dose blister with device 1 inh inhalation DAILY Qty: 28 6RF albuterol sulfate 90 mcg/actuation HFA aerosol inhaler 2 puff inhalation Q6H PRN (Reason: SOB) cetirizine 10 mg tablet 10 mg PO DAILY Qty: 30 6RF epinephrine [EpiPen] 0.3 mg/0.3 mL auto-injector 0.3 mg IM ONCE PRN (Reason: anaphylaxis) Qty: 2 0RF norethindrone-e.estradiol-iron [Shauna Garcia 08/29 (28)] 1 mg-20 mcg (21)/75 mg (7) tablet 1 tab PO DAILY omeprazole 20 mg capsule,delayed release(DR/EC) 20 mg PO BID Discontinued lamotrigine 150 mg tablet 150 mg PO DAILY lamotrigine 25 mg tablet 50 mg PO DAILY fluoxetine 20 mg capsule 60 mg PO BID Discharge Orders: Discharge Order (Routine); Ordered 05/13/25 Ordered By: Faisal Ross Admission Data Admit Date/Time: 05/09/25 17:34 Attending Provider: Jesi Blackmon Admit Provider: Jesi Blackmon Primary Care Provider: Alba Franklin Other Interventions: PSY Interdisciplinary Discharge Planning Last Done: 05/13/25 11:08 Discharge Summary Assessment (RN) Last Done: 05/13/25 10:50 [place] [address] D/C day mgmt 30 min or < Patient Type New History Expanded Problem Focused Exam Expanded Problem Focused Medical Decision Making Moderate Complexity Diagnoses Bipolar I disorder with depression, severe F31.4 Generalized anxiety disorder with panic attacks F41.1; F41.0 Back pain M54.9
== END 2025-05-13 11:29 | disposition home or self-care (01) | DRG 885 ==
LOC: ED 13:35 → 3S 17:34